=== PATIENT | female | born 1970 | race Caucasian/White ===

== ENCOUNTER 2017-03-20 17:19 | Observation (INO) | payer MEDICARE, MEDICAID ==
[~2017-03-20] VITALS: Ht 172.7 cm; Wt 65.9 kg
[2017-03-20 18:14] LABS: ASPARTATE AMINO TRANSFERASE 11 U/L (15-37); BLOOD UREA NITROGEN 9 mg/dL (7-18)
[2017-03-20 18:21] LABS: ACETAMINOPHEN < 2 mcg/mL (10-30)
[2017-03-20 18:39] LABS: DAU SCREEN DISCLAIMER
[2017-03-20] MEDS: PLEASE ENTER ALLERGIES MC SCH ×2 (23:00)
[2017-03-20] MEDS ORDERED: BISACODYL 10 MG SUPP PR PRN (23:00)
[2017-03-20] MEDS ORDERED: LORazepam 1MG TABLET PO PRN (23:00)
[2017-03-20] MEDS ORDERED: POLYETHYLENE GLYCOL 17 GM PACKET PO PRN (23:00)
[2017-03-20] MEDS ORDERED: DOCUSATE 100 MG CAPSULE PO PRN (23:00)
[2017-03-20] MEDS ORDERED: ONDANSETRON ODT 4 MG PO PRN (23:00)
[2017-03-20] MEDS ORDERED: POTASSIUM CHLORIDE 20 MEQ TAB.ER.PRT PO ONE (23:00)
[2017-03-20] MEDS ORDERED: ACETAMINOPHEN 325 MG TABLET PO PRN (23:00)
[2017-03-20] MEDS ORDERED: PLEASE ENTER ALLERGIES MC SCH ×2 (23:45)
[2017-03-21 06:06] LABS: BLOOD UREA NITROGEN 7 mg/dL (7-18)
[2017-03-21] MEDS: PLEASE ENTER ALLERGIES MC SCH ×2 (07:00)
[2017-03-21 07:31] VITALS: BP 110/70
[2017-03-22 07:21] VITALS: BP 130/84
[2017-03-24 08:40] LABS: BLOOD UREA NITROGEN 13 mg/dL (7-18)
[2017-03-24] MEDS ORDERED: LORazepam 1MG TABLET PO PRN (19:00)
[2017-03-24] MEDS ORDERED: ONDANSETRON ODT 4 MG PO PRN (19:00)
[2017-03-24] MEDS ORDERED: ACETAMINOPHEN 325 MG TABLET PO PRN (19:00)
[2017-03-24] MEDS ORDERED: BISACODYL 10 MG SUPP PR PRN (19:00)
[2017-03-25 09:38] VITALS: BP_SYST 85; BP_SYST 86; BP_DIAS 54; BP_DIAS 55
[2017-03-25] MEDS ORDERED: MICONAZOLE 7 VAG. CRM 2%, 45GM VG SCH (21:00)
[2017-03-26 12:55] VITALS: BP 90/59
[2017-03-28] MEDS ORDERED: LORA-446 PO (11:16)
[2017-03-28 11:58] VITALS: BP 87/62
[2017-03-28 19:10] VITALS: BP 94/63
== END 2017-03-28 20:11 ==
LOC: ED 19:00 → EDIP 21:43 → 3E 03-21 00:06
PROVIDERS: ADMIT Internal Medicine; ATTEND Internal Medicine
DX: F29 Unspecified psychosis not due to a substance or known physiological condition (principal); E87.6 Hypokalemia; R73.9 Hyperglycemia, unspecified
CPT/HCPCS: 36415; 80048; 80053; 80307; 80329; 84702; 84703; 85025; 99285; G0378; G0480

== ENCOUNTER 2020-05-19 17:59 | Emergency (ER) | payer MEDICAID, MEDICARE ==
[~2020-05-19] VITALS: Ht 172.7 cm; Wt 80.0 kg
[~2020-05-19 17:59] MED LIST: LORA-446 PO
[2020-05-19 18:20] VITALS: BP 116/63
--- NOTE | 2020-05-19 18:25 | NUR ---
PT BIB [facility] ON A L2K, PLACED BY CATHIE. PT WAS REPORTED MISSING FROM HER [facility] TODAY, [facility] FOUND HER IN A [place]. PT UNCOOPERATIVE. FLAT AFFECT. STATES THAT HER NAME IS "OLEGARIO". PT DOES NOT ANSWER MOST QUESTIONS. STRIPPED, DRESSED IN GOWN. BELONGINGS BAGGED TAGGED AND PLACED IN PSYCH LOCKER. SITTER WITHIN DIRECT LINE OF SIGHT. PT DENIES ANY NEEDS OR PHYSICAL COMPLAINTS.
[2020-05-19 18:51] LABS: BASOPHILS # (AUTO) 0.02 x10^3/uL (0-0.1); BASOPHILS % (AUTO) 1 % (0-1); EOSINOPHILS # (AUTO) 0.05 x10^3/uL (0-0.4); EOSINOPHILS % (AUTO) 1 % (1-7); LYMPHOCYTES % (AUTO) 27 % (22-44); MD NO; MEAN CORPUSCULAR HEMOGLOBIN 32.6 pg (27.0-34.8); MEAN CORPUSCULAR HGB CONC 33.3 g/dL (32.4-35.8); MEAN CORPUSCULAR VOLUME 97.8 fL (80-100); MEAN PLATELET VOLUME 6.5 fL (7.4-10.4); MONOCYTES # (AUTO) 0.34 x10^3/uL (0.2-0.8); MONOCYTES % (AUTO) 7 % (2-9); NEUTROPHILS # (AUTO) 3.18 x10^3/uL (1.8-6.8); NEUTROPHILS % (AUTO) 65 % (42-75); PLATELET COUNT 259 x10^3/uL (130-400); RED BLOOD COUNT 4.16 x10^6/uL (3.82-5.3); RED CELL DISTRIBUTION WIDTH 12.7 % (9.6-15.2)
[2020-05-19 19:00] LABS: ANION GAP 5 mmol/L (5-15); CALCIUM 9.6 mg/dL (8.5-10.1); CHLORIDE 110 mmol/L (98-107); CREATININE 0.69 mg/dL (0.55-1.02)
[2020-05-19 19:01] LABS: SALICYLATE LEVEL < 1.7 mg/dL (2.8-20.0)
--- NOTE | 2020-05-19 19:59 | NUR ---
PT SLEEPING IN BED, SITTER REMAINS IN DIRECT LINE OF SIGHT.
--- NOTE | 2020-05-19 22:02 | NUR ---
PT AMBULATED TO ROOM 2 STEADY GAIT HAO, REPORT FROM RODNEY Garcia RN ASSUMING CARE OF PT AT THIS TIME
[2020-05-19 22:15] LABS: AMPHETAMINE SCREEN, URINE Negative (Negative); BARBITURATE SCREEN, URINE Negative (Negative); BENZODIAZEPINE SCREEN, URINE Negative (Negative); CANNABINOID SCREEN, URINE Negative (Negative); COCAINE SCREEN, URINE Negative (Negative); METHADONE SCREEN, URINE Negative (Negative); OPIATE SCREEN, URINE Negative (Negative)
--- NOTE | 2020-05-19 22:33 | NUR ---
PT RESTING ON [facility]IT[facility] IN [facility]
--- NOTE | 2020-05-19 23:33 | NUR ---
PT RESTING ON [facility] IN [facility]
--- NOTE | 2020-05-20 00:25 | NUR ---
PT RESTING ON [facility] IN [facility]
--- NOTE | 2020-05-20 00:33 | NUR ---
[facility] CALLED AND STATES THAT PT HAS NO LIFETIME DAYS AND WOULD BE A SELF PAY PATIENT. RN AND PT TO BE UPDATED.
--- NOTE | 2020-05-20 00:48 | NUR ---
TP RN: HERNAN FROM [facility] DOWN TO ASSESS PT. STATES SHE WILL GET BACK TO US ABOUT PT ADMISSION TO [facility]. PACKET FAXED TO [facility], [facility], [facility], [facility], AND [facility].
--- NOTE | 2020-05-20 00:55 | NUR ---
MT: [facility] CALLED AND DENIED PT DUE TO NO PSYCH DAYS LEFT.
--- NOTE | 2020-05-20 01:04 | NUR ---
TP RN: KARL BECERRA RN PT ACCEPTED TO [facility]
--- NOTE | 2020-05-20 01:26 | NUR ---
REPORT TO HERNAN CEJA PT READY TO TRANSFER TO FLOOR
[2020-05-20] MEDS ORDERED: ARIP882S IM (13:43)
== END 2020-05-20 01:56 ==
LOC: ED 20:44
DX: F29 Unspecified psychosis not due to a substance or known physiological condition (principal); Z91.83 Wandering in diseases classified elsewhere
CPT/HCPCS: 36415; 80048; 80307; 82040; 85025; 99284